=== PATIENT | male | born 1945 | race Caucasian/White ===

== ENCOUNTER 2022-01-25 22:17 | Inpatient (IN) | payer MEDICARE ==
--- NOTE | 2022-01-25 22:37 | ED ---
Altered Mental Status HPI - General Chief Complaint: Altered Mental Status Stated Complaint: Altered Mental Status Time Seen by Provider: 01/25/22 22:26 Source: EMS, RN notes reviewed, old records reviewed, Caregiver Mode of arrival: EMS Limitations: altered mental status - History of Present Illness Initial Comments: This is a 76-year-old male who presents significantly altered hypoxia and hypotension, patient cannot provide history history obtained by EMS MD Complaint: altered mental status, decreased responsiveness, weakness -: unknown Severity: severe Consistency of Symptoms: getting worse Context: history of similar presentation Associated Symptoms: denies other symptoms Treatments Prior to Arrival: IV fluid, oxygen - Related Data Allergies Allergy/AdvReac Type Severity Reaction Status Date / Time atorvastatin [From Lipitor] Allergy Unknown Verified 01/25/22 22:24 benazepril [From Lotensin] Allergy Unknown Verified 01/25/22 22:24 lisinopril Allergy Unknown Verified 01/25/22 22:24 morphine AdvReac Unknown Verified 01/25/22 22:24 Review of Systems ROS Statement: Those systems with pertinent positive or pertinent negative responses have been documented in the HPI. ROS Other: All systems not noted in ROS Statement are negative. Past Medical History Past Medical History: Diabetes Mellitus, GERD/Reflux, Hypertension History of Any Multi-Drug Resistant Organisms: Unobtainable Past Surgical History: Unable to Obtain Past Psychological History: Anxiety, Depression Smoking Status: Unknown if ever smoked Past Alcohol Use History: Unable to Obtain Past Drug Use History: Unable to Obtain General Exam Limitations: altered mental status General appearance: alert, obtunded, in distress, cachectic Head exam: Present: atraumatic, normocephalic, normal inspection Eye exam: Present: normal appearance, PERRL, EOMI. Absent: scleral icterus, conjunctival injection, periorbital swelling ENT exam: Present: normal exam, mucous membranes moist Neck exam: Present: normal inspection. Absent: tenderness, meningismus, lymphadenopathy Respiratory exam: Present: normal lung sounds bilaterally. Absent: respiratory distress, wheezes, rales, rhonchi, stridor Cardiovascular Exam: Present: regular rate, normal rhythm, normal heart sounds. Absent: systolic murmur, diastolic murmur, rubs, gallop, clicks GI/Abdominal exam: Present: soft, normal bowel sounds. Absent: distended, tenderness, guarding, rebound, rigid Extremities exam: Present: normal inspection, full ROM, normal capillary refill. Absent: tenderness, pedal edema, joint swelling, calf tenderness Back exam: Present: normal inspection Neurological exam: Present: alert, oriented X3, CN II-XII intact Psychiatric exam: Present: normal affect, normal mood Skin exam: Present: warm, dry, intact, normal color. Absent: rash Course Vital Signs 01/25/22 01/25/22 01/25/22 22:18 22:25 23:05 Pulse Rate 105 H 105 H 100 Respiratory 30 H 32 H 34 H Rate Blood Pressure 85/48 81/50 80/48 O2 Sat by Pulse 91 L 92 L 90 L Oximetry 01/26/22 00:00 Pulse Rate 96 Respiratory 32 H Rate Blood Pressure 78/48 O2 Sat by Pulse 90 L Oximetry - Reevaluation(s) Reevaluation #1: 01/26/22 01:05 Medical record is reviewed Reevaluation #2: 01/26/22 01:05 In speaking with family patient is given transition to hospice and comfort care - Consultations Consultation #1: Spoke with sound physicians will admit the patient Medical Decision Making - Medical Decision Making 76 male to the emergency department for evaluation of active stage of , patient hypoxic and hypotensive with altered mental status. Patient will be admitted for comfort care and hospice - Lab Data Result diagrams: 01/25/22 23:01 01/25/22 23:01 Lab Results 01/25/22 01/25/22 01/25/22 Range/Units 23:01 23:01 23:01 WBC 2.5 L (3.8-10.6) k/uL RBC 3.24 L (4.30-5.90) m/uL Hgb 9.2 L (13.0-17.5) gm/dL Hct 28.9 L (39.0-53.0) % MCV 89.3 (80.0-100.0) fL MCH 28.3 (25.0-35.0) pg MCHC 31.7 (31.0-37.0) g/dL RDW 17.5 H (11.5-15.5) % Plt Count 784 H (150-450) k/uL MPV 9.0 Neutrophils % (Manual) 60 % Band Neuts % (Manual) 15 % Lymphocytes % (Manual) 12 % Monocytes % (Manual) 4 % Eosinophils % (Manual) 1 % Metamyelocytes % 7 % Myelocytes % 2 % Neutrophils # (Manual) 1.80 (1.3-7.7) k/uL Lymphocytes # (Manual) 0.30 L (1.0-4.8) k/uL Monocytes # (Manual) 0.10 (0-1.0) k/uL Eosinophils # (Manual) 0.03 (0-0.7) k/uL Metamyelocytes # (Man) 0.18 H (0) k/uL Myelocytes # (Manual) 0.05 H (0) k/uL Nucleated RBCs 2 H (0-0) /100 WBC Manual Slide Review Performed Large Platelets Present Hypochromasia Marked Anisocytosis Slight PT 11.7 (9.0-12.0) sec INR 1.1 (<1.2) APTT 26.6 (22.0-30.0) sec Sodium (137-145) mmol/L Potassium (3.5-5.1) mmol/L Chloride (98-107) mmol/L Carbon Dioxide (22-30) mmol/L Anion Gap mmol/L BUN (9-20) mg/dL Creatinine (0.66-1.25) mg/dL Est GFR (CKD-EPI)AfAm (>60 ml/min/1.73 sqM) Est GFR (CKD-EPI)NonAf (>60 ml/min/1.73 sqM) Glucose (74-99) mg/dL Plasma Lactic Acid Scottie 9.8 H* (0.7-2.0) mmol/L Calcium (8.4-10.2) mg/dL Phosphorus (2.5-4.5) mg/dL Magnesium (1.6-2.3) mg/dL Total Bilirubin (0.2-1.3) mg/dL AST (17-59) U/L ALT (4-49) U/L Alkaline Phosphatase (38-126) U/L Ammonia 33 H (<30) umol/L Troponin I (0.000-0.034) ng/mL NT-Pro-B Natriuret Pep pg/mL Total Protein (6.3-8.2) g/dL Albumin (3.5-5.0) g/dL TSH (0.465-4.680) mIU/L 09/02/0701/25/22 01/25/22 Range/Units 23:01 23:01 23:01 WBC (3.8-10.6) k/uL RBC (4.30-5.90) m/uL Hgb (13.0-17.5) gm/dL Hct (39.0-53.0) % MCV (80.0-100.0) fL MCH (25.0-35.0) pg MCHC (31.0-37.0) g/dL RDW (11.5-15.5) % Plt Count (150-450) k/uL MPV Neutrophils % (Manual) % Band Neuts % (Manual) % Lymphocytes % (Manual) % Monocytes % (Manual) % Eosinophils % (Manual) % Metamyelocytes % % Myelocytes % % Neutrophils # (Manual) (1.3-7.7) k/uL Lymphocytes # (Manual) (1.0-4.8) k/uL Monocytes # (Manual) (0-1.0) k/uL Eosinophils # (Manual) (0-0.7) k/uL Metamyelocytes # (Man) (0) k/uL Myelocytes # (Manual) (0) k/uL Nucleated RBCs (0-0) /100 WBC Manual Slide Review Large Platelets Hypochromasia Anisocytosis PT (9.0-12.0) sec INR (<1.2) APTT (22.0-30.0) sec Sodium 136 L (137-145) mmol/L Potassium 5.0 (3.5-5.1) mmol/L Chloride 92 L (98-107) mmol/L Carbon Dioxide 18 L (22-30) mmol/L Anion Gap 26 mmol/L BUN 58 H (9-20) mg/dL Creatinine 2.88 H (0.66-1.25) mg/dL Est GFR (CKD-EPI)AfAm 23 (>60 ml/min/1.73 sqM) Est GFR (CKD-EPI)NonAf 20 (>60 ml/min/1.73 sqM) Glucose 179 H (74-99) mg/dL Plasma Lactic Acid Scottie (0.7-2.0) mmol/L Calcium 8.9 (8.4-10.2) mg/dL Phosphorus 8.6 H (2.5-4.5) mg/dL Magnesium 1.6 (1.6-2.3) mg/dL Total Bilirubin 0.4 (0.2-1.3) mg/dL AST 27 (17-59) U/L ALT 20 (4-49) U/L Alkaline Phosphatase 98 (38-126) U/L Ammonia (<30) umol/L Troponin I <0.012 (0.000-0.034) ng/mL NT-Pro-B Natriuret Pep 30404 pg/mL Total Protein 6.5 (6.3-8.2) g/dL Albumin 3.3 L (3.5-5.0) g/dL TSH 4.970 H (0.465-4.680) mIU/L - EKG Data -: EKG Interpreted by Me (EKG sinus tachycardia 106 OH 136 QRS 106 QTc 414) - Radiology Data Radiology results: report reviewed (Chest x-rays positive for bilateral effusions), image reviewed Disposition Clinical Impression: Altered mental status, Hypoxia, Hypotension Disposition: ADMITTED IP TO THIS [facility] Condition: Critical Is patient prescribed a controlled substance at d/c from ED?: No Referrals: None,Stated [Primary Care Provider] - 1-2 days Time of Disposition: 01:00
[2022-01-25] MEDS ORDERED: SODIUM CHLORIDE 0.9% 1,000 ML IV STA (22:57)
[2022-01-25 23:31] LABS: INR 1.1 (<1.2); Partial Thromboplastin Time 26.6 sec (22.0-30.0); Prothrombin Time 11.7 sec (9.0-12.0)
[2022-01-25 23:36] LABS: Anisocytosis Slight; HCT 28.9 % (39.0-53.0); HGB 9.2 gm/dL (13.0-17.5); Hypochromasia Marked; MCH 28.3 pg (25.0-35.0); MCHC 31.7 g/dL (31.0-37.0); MCV 89.3 fL (80.0-100.0); Platelet Count 784 k/uL (150-450); RBC 3.24 m/uL (4.30-5.90); RDW 17.5 % (11.5-15.5); WBC 2.5 k/uL (3.8-10.6)
[2022-01-25 23:48] LABS: Lactic Acid, Venous 9.8 mmol/L (0.7-2.0)
--- NOTE | 2022-01-26 00:05 | XR ---
EXAMINATION TYPE: XR chest 1V portable DATE OF EXAM: 01/25/2022 COMPARISON: NONE HISTORY: Short of breath TECHNIQUE: Single view FINDINGS: There is bilateral pulmonary edema and the mid and lower lung purcell. There is widening of the mediastinum. Thoracic aorta is atheromatous. No pleural effusion. IMPRESSION: Bilateral lower lobe pulmonary airspace edema. Widening of the mediastinum. Atheromatous aorta. Recommend comparison with old exams. Mediastinal mass not excluded. This could also be aneurys mal changes of the great vessels.
[2022-01-26 00:08] LABS: Albumin 3.3 g/dL (3.5-5.0); Calcium 8.9 mg/dL (8.4-10.2); Magnesium 1.6 mg/dL (1.6-2.3); Phosphorus 8.6 mg/dL (2.5-4.5); Total Bilirubin 0.4 mg/dL (0.2-1.3); Total Protein 6.5 g/dL (6.3-8.2)
[2022-01-26 00:47] LABS: Band Neutrophils % 15 %; Eosinophils # (M) 0.03 k/uL (0-0.7); Metamyelocytes # (M) 0.18 k/uL (0); Metamyelocytes % 7 %; Myelocytes # (M) 0.05 k/uL (0); Myelocytes % 2 %; Neutrophils % (M) 60 %; Nucleated Red Blood Cells 2 /100 WBC (0-0); Total Cells Counted 200
[2022-01-26 00:49] LABS: Large Platelets Present
[2022-01-26] MEDS ORDERED: NALOXONE 0.4 MG/ML 1 ML VIAL IV PRN (00:52)
[2022-01-26] MEDS ORDERED: ONDANSETRON 4 MG/2 ML VIAL IVP PRN (00:52)
[2022-01-26] MEDS ORDERED: ACETAMINOPHEN TAB 325 MG TAB PO PRN (00:52)
[2022-01-26] MEDS ORDERED: HYDROmorphone 0.5 MG/0.5 ML SYRINGE IVP STA (00:53)
[2022-01-26] MEDS ORDERED: LORazepam 2 MG/ML INJ IV PRN (00:53)
[2022-01-26] MEDS ORDERED: HYDROmorphone 0.5 MG/0.5 ML SYRINGE IVP PRN (00:53)
[2022-01-26] MEDS ORDERED: SODIUM CHLORIDE 0.9% 1,000 ML IV SCH (01:00)
[2022-01-26 02:06] VITALS: BP 64/36
[2022-01-26 02:55] VITALS: PULSE 0; RESP 0
--- NOTE | 2022-01-26 04:54 | P.HPIM ---
History of Present Illness H&P Date: 01/26/22 The patient is a 76-year-old male with a PMH of unknown metastatic malignancy, on hospice, and hypertension who was sent in from [facility] due to worsening hypotension and hypoxia with altered mental status. History obtained from the chart as the patient was comatose at the time of interview and appeared to be actively dying. Attempted to contact the patient's son Yon Covington via the telephone number listed on the chart with no answer. The patient's laboratory evaluation reveals a lactic acid of 9.8. Chest x-ray revealed bilateral lower lobe pulmonary edema with widened mediastinum. The patient was severely hypoxic in the emergency room with SpO2 90% on 15 L nonrebreather. Review of systems: Pertinent positives and negatives as discussed in HPI, a complete review of systems was performed and all other systems are negative. Physical examination: General: Elderly male in mild to moderate respiratory distress Derm: no unusual rashes/lesions, warm Head: atraumatic, normocephalic, symmetric Eyes: Anicteric sclera, pupils equal round reactive to light ENT: Nose and ears atraumatic Neck: No cervical lymphadenopathy, trachea midline, supple Mouth: no lip lesion, mucus membranes dry Cardiovascular: S1S2 reg, no murmur, positive dorsalis pedis pulse bilateral, no edema Lungs: Bilateral rhonchi and rales, some accessory muscle use noted Abdominal: soft, nontender to palpation, no guarding Ext: No gross muscle atrophy, no contractures, Neuro: Unable to assess, patient comatose and unresponsive to stimuli Assessment/plan Acute hypoxic respiratory failure with lactic acidosis -The case was discussed by ED provider with the family who requested hospice and transition to comfort care. The family and recommended the patient was actively dying and their priority was his comfort -Comfort care order set placed Past Medical History Past Medical History: Diabetes Mellitus, GERD/Reflux, Hypertension History of Any Multi-Drug Resistant Organisms: Unobtainable Past Surgical History: Unable to Obtain Past Psychological History: Anxiety, Depression Smoking Status: Unknown if ever smoked Past Alcohol Use History: Unable to Obtain Past Drug Use History: Unable to Obtain - Past Family History Father Additional Family Medical History / Comment(s): Unable to obtain due to mental status Medications and Allergies Allergies Allergy/AdvReac Type Severity Reaction Status Date / Time atorvastatin [From Lipitor] Allergy Unknown Verified 01/25/22 22:24 benazepril [From Lotensin] Allergy Unknown Verified 01/25/22 22:24 lisinopril Allergy Unknown Verified 01/25/22 22:24 morphine AdvReac Unknown Verified 01/25/22 22:24 Physical Exam Vitals: Vital Signs Pulse Resp BP Pulse Ox 01/26/22 02:00 41 L 10 L 64/36 01/26/22 01:00 72 20 63/42 81 L 01/26/22 00:00 96 32 H 78/48 90 L 01/25/22 23:05 100 34 H 80/48 90 L 01/25/22 22:25 105 H 32 H 81/50 92 L 01/25/22 22:18 105 H 30 H 85/48 91 L Intake and Output 01/25/22 01/25/22 01/26/22 14:59 22:59 06:59 Other: Weight 171 kg Results CBC & Chem 7: 01/25/22 23:01 01/25/22 23:01 Labs: Abnormal Lab Results - Last 24 Hours (Table) 01/25/22 01/25/22 01/25/22 Range/Units 23:01 23:01 23:01 WBC 2.5 L (3.8-10.6) k/uL RBC 3.24 L (4.30-5.90) m/uL Hgb 9.2 L (13.0-17.5) gm/dL Hct 28.9 L (39.0-53.0) % RDW 17.5 H (11.5-15.5) % Plt Count 784 H (150-450) k/uL Lymphocytes # (Manual) 0.30 L (1.0-4.8) k/uL Metamyelocytes # (Man) 0.18 H (0) k/uL Myelocytes # (Manual) 0.05 H (0) k/uL Nucleated RBCs 2 H (0-0) /100 WBC Sodium 136 L (137-145) mmol/L Chloride 92 L (98-107) mmol/L Carbon Dioxide 18 L (22-30) mmol/L BUN 58 H (9-20) mg/dL Creatinine 2.88 H (0.66-1.25) mg/dL Glucose 179 H (74-99) mg/dL Plasma Lactic Acid Scottie 9.8 H* (0.7-2.0) mmol/L Phosphorus 8.6 H (2.5-4.5) mg/dL Ammonia 33 H (<30) umol/L Albumin 3.3 L (3.5-5.0) g/dL TSH 4.970 H (0.465-4.680) mIU/L
--- NOTE | 2022-01-26 04:55 | P.DS ---
Providers Date of admission: 01/26/22 00:52 Expected date of discharge: 01/26/22 Attending physician: Lorna Kevin MD Primary care physician: Stated None Hospital Course: The patient at 0213. Please refer to the history and physical for further details. Patient Condition at Discharge: Critical Plan - Discharge Summary Follow up Appointment(s)/Referral(s): None,Stated [Primary Care Provider] - 1-2 days Discharge Disposition: - Preliminary Cause of Preliminary Cause of : Metastatic cancer
--- NOTE | 2022-01-29 10:43 | CDI ---
Documentation Clarification Form Date: 01/29/22 From: Yola García Admit Date: 01/26/2022 12:52:00 AM Patient Name: Naveed Covington Visit Number: [id number] Discharge Date: 01/26/2022 03:04:00 AM ATTENTION: The Clinical Documentation Specialists (CDI) and [facility] Coding Staff appreciate your assistance in clarifying documentation. Please respond to the clarification below the line at the bottom and electronically sign. The CDI & [facility] Coding staff will review the response and follow-up if needed. Please note: Queries are made part of the Legal Health Record. If you have any questions, please contact the author of this message via ITS. Dr. Lorna Kevin, The patient presented with the following clinical indicators. Additional clarification regarding the etiology/cause of the clinical indicators is requested. History/Risk Factors: Primary malignancy unknown, metastatic malignancy unknown Clinical Indicators: The patient is a 76-year-old male with a PMH of unknown metastatic malignancy, on hospice, and hypertension who was sent in from [facility] due to worsening hypotension and hypoxia with altered mental status. History obtained from the chart as the patient was comatose at the time of interview and appeared to be actively dying. HGB 9.2, HCT 28.9, PLT CT 784 WBC: 2.5 Lactic acid: 9.8 Blood cultures: none available Vitals signs: T-none, P 105, R 30, BP 85/48, O2 91 Treatment: IV fluids In your professional opinion, please clarify if these findings signify one of the following conditions: [ ] Sepsis POA [ ] Sepsis, Not POA [ ] Sepsis ruled out [ ] Severe Sepsis with organ failure [ ] Septic Shock [ ] SIRS, without underlying infectious process [ ] Other, please specify [ ] Unable to determine SIRS Criteria: 2 or more of the following may indicate SIRS -Temperature < 96.8F (36C) or > 101.0F (38.3C) -Heart Rate > 90 bpm -Respiratory Rate > 20 breaths/min or PaCO2 < 32 mmHg -White Blood Cell Count > 12,000 or < 4,000 cells/mm3 or > 10% bands MTDD
--- NOTE | 2022-01-31 10:59 | CDI ---
Documentation Clarification Form Date: 01/29/2022 10:41:00 AM From: Yola García Admit Date: 01/26/2022 12:52:00 AM Patient Name: Naveed Covington Visit Number: [id number] Discharge Date: 01/26/2022 03:04:00 AM ATTENTION: The Clinical Documentation Specialists (CDI) and [facility] Coding Staff appreciate your assistance in clarifying documentation. Please respond to the clarification below the line at the bottom and electronically sign. The CDI & [facility] Coding staff will review the response and follow-up if needed. Please note: Queries are made part of the Legal Health Record. If you have any questions, please contact the author of this message via ITS. Dr. Lorna Kevin, The patient presented with the following clinical indicators. Additional clarification regarding the etiology/cause of the clinical indicators is requested. History/Risk Factors: Primary malignancy unknown, metastatic malignancy unknown Clinical Indicators: The patient is a 76-year-old male with a PMH of unknown metastatic malignancy, on hospice, and hypertension who was sent in from [facility] due to worsening hypotension and hypoxia with altered mental status. History obtained from the chart as the patient was comatose at the time of interview and appeared to be actively dying. HGB 9.2, HCT 28.9, PLT CT 784 WBC: 2.5 Lactic acid: 9.8 Blood cultures: none available Vitals signs: T-none, P 105, R 30, BP 85/48, O2 91 Treatment: IV fluids In your professional opinion, please clarify if these findings signify one of the following conditions: [ ] Sepsis POA [ ] Sepsis, Not POA [ ] Sepsis ruled out [ ] Severe Sepsis with organ failure [ ] Septic Shock [ ] SIRS, without underlying infectious process [ ] Other, please specify [ ] Unable to determine SIRS Criteria: 2 or more of the following may indicate SIRS -Temperature < 96.8F (36C) or > 101.0F (38.3C) -Heart Rate > 90 bpm -Respiratory Rate > 20 breaths/min or PaCO2 < 32 mmHg -White Blood Cell Count > 12,000 or < 4,000 cells/mm3 or > 10% bands MTDD
== END 2022-01-26 03:04 | disposition expired | DRG 871 ==
LOC: EC 22:17 → 4SSUR 01-26 00:52
PROVIDERS: ADMIT Internal Medicine; ATTEND Internal Medicine
DX: A41.9 Sepsis, unspecified organism (principal); J96.01 Acute respiratory failure with hypoxia; R65.21 Severe sepsis with septic shock; R64 Cachexia; E87.2 Acidosis; C79.9 Secondary malignant neoplasm of unspecified site; I95.9 Hypotension, unspecified; C80.1 Malignant (primary) neoplasm, unspecified; E11.9 Type 2 diabetes mellitus without complications; Z51.5 Encounter for palliative care; Z66 Do not resuscitate; I10 Essential (primary) hypertension; F32.A Depression, unspecified; F41.9 Anxiety disorder, unspecified; Z68.23 Body mass index [BMI] 23.0-23.9, adult; K21.9 Gastro-esophageal reflux disease without esophagitis; Z79.891 Long term (current) use of opiate analgesic; Z79.899 Other long term (current) drug therapy; Z88.5 Allergy status to narcotic agent; Z88.8 Allergy status to other drugs, medicaments and biological substances
CPT/HCPCS: 36415; 71045; 80053; 82140; 83605; 83735; 83880; 84100; 84443; 84484; 85025; 85610; 85730; 93005; 96361; 96374; 99285